=== PATIENT | male | born 1990 | race American Indian/Alaskan Native ===

== ENCOUNTER 2019-09-11 12:43 | Emergency (ER) | payer BC ==
--- NOTE | 2019-09-11 14:41 | Event Note ---
ED Screening Note ED Screening Note: states he has URI for 4 days +dry cough no productive cough no fever left lower back pain for three days radiates down the left leg This initial assessment/diagnostic orders/clinical plan/treatment(s) is/are subject to change based on patients health status, clinical progression and re- assessment by fellow clinical providers in the ED. Further treatment and workup at subsequent clinical providers discretion. Patient/guardian urged not to elope from the ED as their condition may be serious if not clinically assessed and managed.
[2019-09-11] MEDS ORDERED: predniSONE 20 MG TAB PO ONE (16:41)
[2019-09-11] MEDS ORDERED: ALBUTEROL 2.5 MG/3 ML NEBU IH ONE (16:41)
[2019-09-11] MEDS ORDERED: IBUPROFEN 800 MG TAB PO ONE (16:41)
--- NOTE | 2019-09-11 16:42 | Emergency Department Report ---
Minor Respiratory - HPI Chief Complaint: Upper Respiratory Infection Stated Complaint: FLU SYMPTOMS Time Seen by Provider: 09/11/19 14:39 ED Review of Systems ROS: Stated complaint: FLU SYMPTOMS Other details as noted in HPI Comment: All other systems reviewed and negative ED Past Medical Hx - Past Medical History Previous Medical History?: No - Surgical History Past Surgical History?: Yes Additional Surgical History: Tonsilectomy, Adenoidectomy - Family History Family history: no significant - Social History Smoking Status: Current Some Day Smoker Substance Use Type: Alcohol, Marijuana - Medications Home Medications: Home Medications Medication Instructions Recorded Confirmed Last Taken Type Azithromycin [Zithromax Z-RANDOLPH] 250 mg PO DAILY #6 tablet 09/11/19 Unknown Rx Cyclobenzaprine [Flexeril] 10 mg PO TID PRN #10 tablet 09/11/19 Unknown Rx Ibuprofen [Motrin] 800 mg PO Q8HR PRN #30 tablet 09/11/19 Unknown Rx predniSONE [Deltasone] 20 mg PO DAILY #5 tablet 09/11/19 Unknown Rx Minor Respiratory Exam - Exam General: Vital signs noted. No distress. Alert and acting appropriately. HEENT: Yes Moist Mucous Membranes, No Pharyngeal Erythema, No Pharyngeal Exudates, No Rhinorrhea, No Conjuctival Injection, No Frontal Tenderness, No Maxillary Tenderness Ear: Neither TM Bulge, Neither TM Erythema, Neither EAC Pain, Neither EAC Discharge Neck: Yes Supple, No Adenopathy Lungs: Yes Good Air Exchange, Yes Wheezes, No Ronchi, No Stridor, No Cough, No Labored Respirations, No Retractions, No Use of Accessory Muscles, No Other Abno rmal Lung Sounds Heart: Yes Regular, No Murmur Abdomen: Yes Normal Bowel Sounds, No Tenderness, No Peritoneal Signs Skin: No Rash, No Edema Neurologic: Alert and oriented, no deficits. Musculoskeletal: Unremarkable. ED Course Vital Signs 09/11/19 14:40 Temperature 98.4 F Pulse Rate 97 H Respiratory 16 Rate Blood Pressure 125/70 O2 Sat by Pulse 98 Oximetry ED Medical Decision Making - Radiology Data Radiology results: report reviewed, image reviewed - Medical Decision Making Vital Signs 09/11/19 14:40 Temperature 98.4 F Pulse Rate 97 H Respiratory 16 Rate Blood Pressure 125/70 O2 Sat by Pulse 98 Oximetry Critical care attestation.: If time is entered above; I have spent that time in minutes in the direct care of this critically ill patient, excluding procedure time. ED Disposition Clinical Impression: URTI (acute upper respiratory infection), Sciatica, Bronchitis Disposition: DC- TO HOME OR SELFCARE Is pt being admited?: No Does the pt Need Aspirin: No Condition: Stable Instructions: Upper Respiratory Infection (ED), Acute Bronchitis (ED) Additional Instructions: MEDS ORDERED TODAY MOTRIN OR TYLENOL FOR PAIN OR FEVER FOLLOW UP WITH PCP REFERRAL BELOW Prescriptions: predniSONE [Deltasone] 20 mg PO DAILY #5 tablet Cyclobenzaprine [Flexeril] 10 mg PO TID PRN #10 tablet PRN Reason: Muscle Spasm Ibuprofen [Motrin] 800 mg PO Q8HR PRN #30 tablet PRN Reason: Pain, Moderate (4-6) Azithromycin [Zithromax Z-RANDOLPH] 250 mg PO DAILY #6 tablet Referrals: ANA VEGA MD [Staff Physician] - 3-5 Days TED RUBALCAVA MD [Staff Physician] - 3-5 Days Time of Disposition: 16:47
[2019-09-11 17:31] VITALS: BP 151/80
--- NOTE | 2019-09-11 18:00 | XRay Report ---
LUMBAR SPINE 3 VIEWS INDICATION: Low back pain. COMPARISON: No relevant prior imaging study available. FINDINGS: There is subtle curvature of the lumbar spine convexity to the right centered at L3. Alignment is oth erwise unremarkable. Vertebral body height and disc space height is maintained. There appears to be a t least unilateral spondylolysis at L5. There is no associated listhesis. IMPRESSION: 1. No acute findings. 2. Probable spondylolysis at L5. No listhesis. CHEST PA AND LATERAL VIEWS INDICATION: COUGH. COMPARISON: None. FINDINGS: Support devices: Unchanged. Heart: Stable. Lungs/Pleura: No acute pulmonary or pleural findings. IMPRESSION: 1. No significant change. Signer Name: Arnel Anderson MD Signed: 09/11/2019 5:55 PM Workstation Name: [employer]
== END 2019-09-11 18:30 | disposition home or self-care (01) ==
LOC: ED 12:43
DX: J06.9 Acute upper respiratory infection, unspecified (principal); M54.30 Sciatica, unspecified side; J40 Bronchitis, not specified as acute or chronic; F17.200 Nicotine dependence, unspecified, uncomplicated; F12.10 Cannabis abuse, uncomplicated; Z79.1 Long term (current) use of non-steroidal anti-inflammatories (NSAID); Z98.890 Other specified postprocedural states; Z79.899 Other long term (current) drug therapy; Z90.89 Acquired absence of other organs
CPT/HCPCS: 71046; 72100; 94640; 99283; J7512